=== PATIENT | female | born 1995 ===

== ENCOUNTER 2022-11-02 02:27 | Inpatient (IN) | payer OTHER ==
[2022-11-02] MEDS ORDERED: PROMETHAZINE HCL 25 MG/1 ML VIAL IVPB ONE (03:35)
[2022-11-02] MEDS ORDERED: BUTORPHANOL TARTRATE 1 MG/ML VIAL IVPB ONE (03:35)
[2022-11-02] MEDS ORDERED: PROMETHAZINE HCL 25 MG/1 ML VIAL IVPUSH ONE (03:35)
[2022-11-02] MEDS ORDERED: ELECTROLYTE-148 SOLN 1,000 ML IV SCH (03:45)
[2022-11-02] MEDS ORDERED: OXYTOCIN 30 UNITS in 0.9% NS 30 UNIT/500 ML INFUS.BAG IVPB SCH (03:45)
[2022-11-02 03:57] LABS: BASO % 0.4 % (0-2.0); EOS % 1.2 % (0-4.5); HEMATOCRIT 34.1 % (32.4-45.2); HEMOGLOBIN 11.8 GM/dL (10.7-15.3); LYMPH % 22.8 % (8-40); MCH 28.9 pg (25.7-33.7); MCHC 34.5 g/dl (32.0-36.0); MEAN CELL VOLUME 83.7 fl (80-96); MEAN PLT VOLUME 10.4 fl (7.5-11.1); MONO % 9.6 % (3.8-10.2); PLATELET COUNT 166 10^3/uL (134-434); RBC 4.07 M/mm3 (3.60-5.2); RDW 15.4 % (11.6-15.6); WHITE BLOOD COUNT 7.4 K/mm3 (4.0-10.0)
[2022-11-02 04:04] LABS: INR 0.89 (0.83-1.09); PROTHROMBIN TIME (PATIENT) 10.3 SEC (9.7-13.0)
[2022-11-02 04:13] VITALS: RESP 18; BMI 36.8
[2022-11-02 04:16] LABS: CALCIUM 8.8 mg/dL (8.5-10.1)
[2022-11-02 04:17] LABS: BLOOD UREA NITROGEN 9.1 mg/dL (7-18)
[2022-11-02 05:13] LABS: HIV INTERPRETATION NEGATIVE (NEGATIVE)
[2022-11-02] MEDS ORDERED: OXYTOCIN 20 UNITS in 0.9% NS 20 UNIT/1,000 ML INFUS.BAG IV ONE (05:23)
[2022-11-02] MEDS ORDERED: BENZOCAINE 20% 57 GM BOTTLE TP PRN (05:59)
[2022-11-02] MEDS ORDERED: BISACODYL 10 MG SUPP.RECT RC PRN (05:59)
[2022-11-02] MEDS ORDERED: oxyCODONE HCL 5 MG TABLET PO PRN (05:59)
[2022-11-02] MEDS ORDERED: WITCH HAZEL 50% (TUCKS) 40 PAD/JAR PAD TP PRN (05:59)
[2022-11-02] MEDS ORDERED: BENZOCAINE 28 GM HEMORRHOIDAL OINTMENT TP PRN (05:59)
[2022-11-02] MEDS ORDERED: ACETAMINOPHEN 325 MG TABLET (FP) PO PRN (05:59)
[2022-11-02] MEDS ORDERED: METHYLERGONOVINE MALEATE 0.2 MG/1 ML AMP IM PRN (05:59)
[2022-11-02] MEDS ORDERED: OXYTOCIN 20 UNITS in 0.9% NS 20 UNIT/1,000 ML INFUS.BAG IV SCH (06:00)
[2022-11-02] MEDS: IBUPROFEN 600 MG TABLET (FP) PO PRN (09:16)
[2022-11-02] MEDS: PRENATAL VITAMINS W/ FOLIC ACID TABLET (FP) PO SCH (09:16)
[2022-11-02] MEDS: FERROUS SO4 325 MG TABLET (FP) PO SCH (09:17)
[2022-11-03 06:44] LABS: BASO % 0.5 % (0-2.0); EOS % 1.8 % (0-4.5); HEMATOCRIT 29.9 % (32.4-45.2); HEMOGLOBIN 9.8 GM/dL (10.7-15.3); LYMPH % 18.8 % (8-40); MCH 28.4 pg (25.7-33.7); MCHC 32.7 g/dl (32.0-36.0); MEAN CELL VOLUME 86.7 fl (80-96); MEAN PLT VOLUME 11.7 fl (7.5-11.1); MONO % 8.4 % (3.8-10.2); NEUT % 70.5 % (42.8-82.8); PLATELET COUNT 137 10^3/uL (134-434); RBC 3.45 M/mm3 (3.60-5.2); RDW 15.2 % (11.6-15.6); WHITE BLOOD COUNT 9.2 K/mm3 (4.0-10.0)
[2022-11-03] MEDS: IBUPROFEN 600 MG TABLET (FP) PO PRN (09:36)
[2022-11-03] MEDS: PRENATAL VITAMINS W/ FOLIC ACID TABLET (FP) PO SCH (09:36)
[2022-11-03] MEDS: FERROUS SO4 325 MG TABLET (FP) PO SCH (09:36)
[2022-11-03] MEDS ORDERED: SENNOSIDES/DOCUSATE COMBO (SENNA PLUS) TABLET (UD) PO PRN (22:00)
[2022-11-04] MEDS: IBUPROFEN 600 MG TABLET (FP) PO PRN (08:14)
[2022-11-04 08:24] VITALS: BP 114/74; PULSE 60; TEMP 98.1
[2022-11-04] MEDS: FERROUS SO4 325 MG TABLET (FP) PO SCH (10:11)
[2022-11-04] MEDS: PRENATAL VITAMINS W/ FOLIC ACID TABLET (FP) PO SCH (10:11)
== END 2022-11-04 11:32 | disposition home or self-care (01) | DRG 807 ==
LOC: JLDR 02:27 → J3W 07:59
PROVIDERS: ADMIT Obstetrics & Gynecology; ATTEND Obstetrics & Gynecology
PROC: 0HQ9XZZ Repair Perineum Skin, External Approach (ICD-10-PCS; principal; 2022-11-02)
PROC: 10E0XZZ Delivery of Products of Conception, External Approach (ICD-10-PCS; 2022-11-02)
DX: O70.0 First degree perineal laceration during delivery (principal); Z37.0 Single live birth; Z3A.39 39 weeks gestation of pregnancy
CPT/HCPCS: 36415; 80048; 85025; 85610; 85730; 86780; 86850; 86900; 86901; 87389